=== PATIENT | male | born 1970 | race Caucasian/White ===

== ENCOUNTER 2016-12-25 06:34 | Emergency (ER) | payer OTHER ==
[~2016-12-25] VITALS: Ht 160 cm; Wt 72.0 kg
[~2016-12-25 06:34] MED LIST: DICL50TA PO; ROBA750T PO
[2016-12-25 06:36] VITALS: BP 127/71; PULSE 68; RESP 16; TEMP 98.7; O2SAT 99
--- NOTE | 2016-12-25 07:52 | PD ---
HPI Chief Complaint: Eye Problems/Injury Time Seen by Provider: 07:34 Travel History International Travel<30 days: No Contact w/Intl Traveler<30days: No Traveled to known affect area: No History of Present Illness HPI 46yo M with no significant PMH presents to the ED with c/o left eye redness. Pt states he woke up yesterday and had an area of blood in his left eye and thinks one of the blood vessel may have bursted. Also woke up with crusting of left eye and it was a bit itchy so he did rub it with his hand. Feels like he has been having some blurry vision this week and harder to focus. Pt does not wear eyeglasses or contact lens but has not seen eye doctor in a long time. Denies any eye discharge, eye pain, pain with eye movement, direct trauma to eye , welding, fever, chest pain, sob, n/v, abdominal pain, focal weakness or numbness. PFSH Past Medical History Medical History: Denies Significant Hx Tetanus Vaccination: > 5 Years Influenza Vaccination: No Past Surgical History Oral Surgery: Yes Social History Alcohol Use: No Tobacco Use: No Substance Use: No Allergies-Medications (Allergen,Severity, Reaction): Coded Allergies: No Known Allergies (Verified , 12/25/16) Reported Meds & Prescriptions Reported Meds & Active Scripts Active Erythromycin Opth Oint 5 Mg/Gm Oint 1 Applic EACH EYE BID 5 Days Review of Systems Except as stated in HPI: all other systems reviewed are Neg Physical Exam Narrative GENERAL: 46yo M not in distress. SKIN: Focused skin assessment warm/dry. HEAD: Atraumatic. Normocephalic. EYES: Pupils equal and round at 4mm bilaterally. Injected conjunctiva bilaterally. +Subconjunctival hemorrhage in left eye 3 o'clock. ENT: No nasal bleeding or discharge. Mucous membranes pink and moist. NECK: Trachea midline. No JVD. CARDIOVASCULAR: Regular rate and rhythm. No murmur appreciated. RESPIRATORY: No accessory muscle use. Clear to auscultation. Breath sounds equal bilaterally. GASTROINTESTINAL: Abdomen soft, non-tender, nondistended. MUSCULOSKELETAL: No obvious deformities. No clubbing. No cyanosis. No edema. NEUROLOGICAL: Awake and alert. No obvious cranial nerve deficits. Motor grossly within normal limits. Normal speech. PSYCHIATRIC: Appropriate mood and affect; insight and judgment normal. Data Data Last Documented VS Vital Signs Date Time Temp Pulse Resp B/P Pulse Ox O2 Delivery O2 Flow Rate FiO2 12/25/16 07:17 66 18 12/25/16 06:36 98.7 127/71 99 MDM Medical Decision Making Medical Screen Exam Complete: Yes Emergency Medical Condition: Yes Differential Diagnosis Subconjunctival hemorrhage vs. viral conjunctivitis vs. allergic conjunctivitis vs. corneal abrasion Narrative Course 46yo M with subconjunctival hemorrhage in left eye. Pt has been rubbing it. There is a small flourescein uptake in 9 o'clock position in left eye. Will cover with erythromycin ointment and have pt follow up with ophthalmology. Visual acuity Left 20/20. Right 20/20. Diagnosis Primary Impression: Subconjunctival hemorrhage Qualified Code: H11.32 - Subconjunctival hemorrhage of left eye Additional Impression: Cornea abrasion Qualified Code: S05.02XA - Abrasion of left cornea, initial encounter Referrals: Raissa Aquino MD as needed Subconjunctival hemorrhage, corneal abrasion Departure Forms: Tests/Procedures, Work Release Enter return to work date: Dec 27, 2016 Additional Instructions: Please follow up with ophthalmology in 3-7 days. Return to the ED if symptoms worsen. Med/Other Pt SpecificInfo: Prescription(s) given Scripts Erythromycin Opth Oint 5 Mg/Gm Oint1 Applic EACH EYE BID 5 Days Ref 0 Prov:Gladys Crow DO 12/25/16 Disposition: 01 DISCHARGE HOME Condition: Stable Gladys Crow DO Dec 25, 2016 07:52
[2016-12-25] MEDS ORDERED: ERYTOIN10 EACH EYE (10:06)
== END 2016-12-25 10:44 | disposition home or self-care (01) ==
LOC: NEPC 06:34
DX: H11.32 Conjunctival hemorrhage, left eye (principal); S05.02XA Injury of conjunctiva and corneal abrasion without foreign body, left eye, initial encounter; X58.XXXA Exposure to other specified factors, initial encounter
CPT/HCPCS: 99283

== ENCOUNTER 2017-03-17 16:29 | Emergency (ER) | payer OTHER, BC ==
[~2017-03-17] VITALS: Ht 160 cm; Wt 70.0 kg
[~2017-03-17 16:29] MED LIST changes: -DICL50TA PO; +ERYTOIN10 EACH EYE; -ROBA750T PO
[2017-03-17 16:32] VITALS: BP 134/78; PULSE 79; RESP 16; TEMP 97.8; O2SAT 96
--- NOTE | 2017-03-17 17:59 | PD ---
HPI Chief Complaint: Dizziness Time Seen by Provider: 17:20 Travel History International Travel<30 days: No Contact w/Intl Traveler<30days: No Traveled to known affect area: No History of Present Illness HPI states has had episodes of dizziness since he had a dental procedure (wisdom tooth was infected and shattered during extraction per patient). it is intermittent, without any relieving or aggravating factors. denies associated factors of fever/brown/cough/runny nose/cp/abd pain/ chart and rn notes reviewed all:nkda pmhx: asthma in childhood pshx: only dental PFSH Past Medical History Asthma: Yes Diminished Hearing: No Respiratory: Yes Tetanus Vaccination: > 5 Years Influenza Vaccination: No Past Surgical History Oral Surgery: Yes Social History Alcohol Use: No Tobacco Use: No Substance Use: No Allergies-Medications (Allergen,Severity, Reaction): Coded Allergies: No Known Allergies (Verified , 03/17/17) Reported Meds & Prescriptions Reported Meds & Active Scripts Active No Active Prescriptions or Reported Medications Review of Systems Except as stated in HPI: all other systems reviewed are Neg General / Constitutional: No: Fever Eyes: No: Visual changes HENT: No: Headaches Cardiovascular: No: Chest Pain or Discomfort Respiratory: No: Shortness of Breath Gastrointestinal: No: Abdominal Pain Genitourinary: No: Dysuria Musculoskeletal: No: Pain Skin: No Rash Neurologic: Positive: Dizziness Psychiatric: No: Depression Endocrine: No: Polydipsia Hematologic/Lymphatic: No: Easy Bruising Physical Exam Narrative GENERAL: SKIN: Warm and dry. HEAD: Atraumatic. Normocephalic. EYES: Pupils equal and round. No scleral icterus. No injection or drainage. ENT: No nasal bleeding or discharge. Mucous membranes pink and moist. NECK: Trachea midline. No JVD. CARDIOVASCULAR: Regular rate and rhythm. RESPIRATORY: No accessory muscle use. Clear to auscultation. Breath sounds equal bilaterally. GASTROINTESTINAL: Abdomen soft, non-tender, nondistended. MUSCULOSKELETAL: Extremities without clubbing, cyanosis, or edema. No obvious deformities. NEUROLOGICAL: Awake and alert. No obvious cranial nerve deficits. Motor grossly within normal limits. Five out of 5 muscle strength in the arms and legs. Normal speech. PSYCHIATRIC: Appropriate mood and affect; insight and judgment normal. Data Data Last Documented VS Vital Signs Date Time Temp Pulse Resp B/P (MAP) Pulse Ox O2 Delivery O2 Flow Rate FiO2 03/17/17 19:43 03/17/17 18:00 55 19 96 Room Air 03/17/17 16:32 97.8 Orders Orders Electrocardiogram (03/17/17 17:29) Complete Blood Count With Diff (03/17/17 17:29) Comprehensive Metabolic Panel (03/17/17 17:29) Lipase (03/17/17 17:29) Thyroid Stimulating Hormone (03/17/17 17:29) Alcohol (Ethanol) (03/17/17 17:29) Salicylates (Aspirin) (03/17/17 17:29) Tylenol (Acetaminophen) (03/17/17 17:29) Ed Discharge Order (03/17/17 19:33) Labs Laboratory Tests Test 03/17/17 17:40 White Blood Count 9.4 TH/MM3 Red Blood Count 4.16 MIL/MM3 Hemoglobin 13.6 GM/DL Hematocrit 37.2 % Mean Corpuscular Volume 89.3 FL Mean Corpuscular Hemoglobin 32.6 PG Mean Corpuscular Hemoglobin Concent 36.5 % Red Cell Distribution Width 12.7 % Platelet Count 234 TH/MM3 Mean Platelet Volume 8.0 FL Neutrophils (%) (Auto) 76.9 % Lymphocytes (%) (Auto) 15.8 % Monocytes (%) (Auto) 4.9 % Eosinophils (%) (Auto) 2.2 % Basophils (%) (Auto) 0.2 % Neutrophils # (Auto) 7.3 TH/MM3 Lymphocytes # (Auto) 1.5 TH/MM3 Monocytes # (Auto) 0.5 TH/MM3 Eosinophils # (Auto) 0.2 TH/MM3 Basophils # (Auto) 0.0 TH/MM3 CBC Comment AUTO DIFF Differential Comment AUTO DIFF CONFIRMED Platelet Estimate NORMAL Platelet Morphology Comment NORMAL Red Cell Morphology Comment NORMAL Blood Urea Nitrogen 18 MG/DL Creatinine 0.87 MG/DL Random Glucose 116 MG/DL Total Protein 6.7 GM/DL Albumin 3.2 GM/DL Calcium Level 8.8 MG/DL Alkaline Phosphatase 66 U/L Aspartate Amino Transf (AST/SGOT) 23 U/L Alanine Aminotransferase (ALT/SGPT) 35 U/L Total Bilirubin 0.4 MG/DL Sodium Level 141 MEQ/L Potassium Level 3.6 MEQ/L Chloride Level 106 MEQ/L Carbon Dioxide Level 26.6 MEQ/L Anion Gap 8 MEQ/L Estimat Glomerular Filtration Rate 94 ML/MIN Lipase 119 U/L Thyroid Stimulating Hormone 3rd Gen 0.616 uIU/ML Salicylates Level LESS THAN 1.7 MG/DL Acetaminophen Level LESS THAN 2.0 MCG/ML Ethyl Alcohol Level LESS THAN 3 MG/DL MDM Medical Decision Making Medical Screen Exam Complete: Yes Emergency Medical Condition: Yes Medical Record Reviewed: Yes Differential Diagnosis anemia v dehydration v thyroid condition Narrative Course no anemia, no dehydration nor any thyroid abnl on tsh screening test. Diagnosis Primary Impression: Dizziness Referrals: [facility] for referral and further care Patient Instructions: Dizziness (ED), General Instructions Scripts No Active Prescriptions or Reported Meds Disposition: DISCHARGE HOME Condition: Stable Chuckie Mauriico MD Mar 17, 2017 17:59
[2017-03-17 18:00] VITALS: BP 120/68; PULSE 55; RESP 19; O2SAT 96
[2017-03-17 18:30] LABS: AUTOMATED NEUTROPHIL # 7.3 TH/MM3 (1.8-7.7); BASOPHIL % 0.2 % (0.0-2.0); EOSINOPHIL # 0.2 TH/MM3 (0-0.4); EOSINOPHIL % 2.2 % (0.0-4.0); HEMATOCRIT 37.2 % (39.0-51.0); HEMOGLOBIN 13.6 GM/DL (13.0-17.0); LYMPH % 15.8 % (9.0-44.0); LYMPHOCYTE # 1.5 TH/MM3 (1.0-4.8); MEAN CELL VOLUME 89.3 FL (80.0-100.0); MEAN CORPUSCULAR HEMOGLOBIN 32.6 PG (27.0-34.0); MONO % 4.9 % (0.0-8.0); MONOCYTE # 0.5 TH/MM3 (0-0.9); NEUT % 76.9 % (16.0-70.0); PLATELET COUNT 234 TH/MM3 (150-450); RED BLOOD COUNT 4.16 MIL/MM3 (4.50-5.90); RED CELL DISTRIBUTION WIDTH 12.7 % (11.6-17.2); WHITE BLOOD COUNT 9.4 TH/MM3 (4.0-11.0)
[2017-03-17 18:31] LABS: MEAN CORPUSCULAR HGB CONC 36.5 % (32.0-36.0)
[2017-03-17 19:05] LABS: ALBUMIN 3.2 GM/DL (3.4-5.0); AST (GOT) 23 U/L (15-37); BICARBONATE 26.6 MEQ/L (21.0-32.0); BLOOD UREA NITROGEN 18 MG/DL (7-18); CALCIUM 8.8 MG/DL (8.5-10.1); CHLORIDE 106 MEQ/L (98-107); CREATININE 0.87 MG/DL (0.60-1.30); GLOMERULAR FILTRATION RATE 94 ML/MIN (>89); GLUCOSE,RANDOM 116 MG/DL (74-106); LIPASE 119 U/L (73-393); SODIUM (NA) 141 MEQ/L (136-145)
[2017-03-17 19:10] LABS: ALKALINE PHOSPHATASE 66 U/L (45-117); ALT (GPT) 35 U/L (12-78); TOTAL BILIRUBIN ADULT 0.4 MG/DL (0.2-1.0); TOTAL PROTEIN 6.7 GM/DL (6.4-8.2)
[2017-03-17 19:11] LABS: ACETAMINOPHEN LESS THAN 2.0 MCG/ML (10.0-30.0)
--- NOTE | 2017-03-18 12:19 | EKG ---
Date Performed: 03/17/2017 Time Performed: 17:18:13 PTAGE: 46 years EKG: Sinus rhythm WITH SINUS ARRHYTHMIA POSSIBLE RIGHT VENTRICULAR CONDUCTION DELAY BORDERLINE ECG NO PREVIOUS TRACING DOCTOR: Arden Myers Interpretating Date/Time 03/18/2017 12:13:59
== END 2017-03-17 19:48 | disposition home or self-care (01) ==
LOC: NEPD 16:29
DX: R42 Dizziness and giddiness (principal); J45.909 Unspecified asthma, uncomplicated; R94.31 Abnormal electrocardiogram [ECG] [EKG]
CPT/HCPCS: 80053; 80307; 83690; 84443; 85025; 93005